=== PATIENT | female | born 1980 | race Two or more races ===

== ENCOUNTER 2017-06-05 22:19 | Emergency (ER) | payer MEDICAID ==
[~2017-06-05] VITALS: Ht 154.9 cm; Wt 63.0 kg
[~2017-06-05 22:19] MED LIST: ACETAMINOPHEN-1 EAC1 ORAL; AMOXICILLIN500 MG ORAL; AMOXICILLIN500 MG PO; AUGMENTIN 875-1 EAC1 ORAL; AURALGAN OTIC1 DROP BOTH EARS; CEPHALEXIN500 MG ORAL; CEPHALEXIN500 MG PO; CIPRODEX OTIC7.5 M1 RIGHT EAR; CORTISPORIN EAR10 M1 RIGHT EAR; CORTISPORIN EAR10 ML OTIC; FIORICET1 EA ORAL; IBUPROFEN600 MG ORAL; IBUPROFEN600 MG PO; MACROBID100 MG ORAL; NKM; NORCO 5-325 TA1 EACH ORAL; PERCOCET 5-3251 EACH PO; VOSOL 2% OTIC S15 ML LEFT EAR
--- NOTE | 2017-06-05 22:58 | Emergency Room Report ---
History of Present Illness General Chief Complaint: Vaginal Source: Patient Present Illness HPI This is a 37-year-old female with irregular menstrual. She presents with vaginal bleeding. Onset for last 3 weeks now. Initially he was just spotting but for the last couple days his been heavier. She has some cramping pain in the suprapubic area. Going through 2 pads a day. No nausea no vomiting. She started on Depo-Provera shot last month. Her doctor check. Her doctor checked for weeks ago and was negative Allergies: Coded Allergies: No Known Allergies (Unverified , 01/14/12) Patient History Past Medical History: see triage record, old chart reviewed Past Surgical History: none Pertinent Family History: none Social History: Denies: smoking Last Menstrual Period: on her period Now: No : 3 Para: 3 Immunizations: other Reviewed Nursing Documentation: PMH: Agreed; PSxH: Agreed Nursing Documentation-PM Past Medical History: No Stated History Review of Systems Eye: Denies: eye pain, blurred vision ENT: Denies: ear pain, nose congestion, throat swelling Respiratory: Denies: cough, shortness of breath Cardiovascular: Denies: chest pain, palpitations Gastrointestinal: Denies: abdominal pain, diarrhea, nausea, vomiting Genitourinary: Reports: vag bleed/dc Musculoskeletal: Denies: back pain, joint pain Skin: Denies: rash Neurological: Denies: headache, numbness Endocrine: Denies: increased thirst, increased urine Hematologic/Lymphatic: Denies: easy bruising All Other Systems: negative except mentioned in HPI Physical Exam Vital Signs Date Time Temp Pulse Resp B/P (MAP) Pulse Ox O2 Delivery O2 Flow Rate FiO2 06/05/17 22:27 98.4 78 18 120/75 98 Room Air 98.4 vitals normal Sp02 EP Interpretation: reviewed, normal General Appearance: well appearing, no apparent distress, alert Head: normocephalic, atraumatic Eyes: bilateral eye PERRL, bilateral eye EOMI ENT: hearing grossly normal, normal pharynx Neck: full range of motion, supple, no meningismus Respiratory: chest non-tender, lungs clear, normal breath sounds Cardiovascular #1: regular rate, rhythm, no murmur Gastrointestinal: normal bowel sounds, non tender, no mass, no organomegaly, no bruit, non-distended Musculoskeletal: back normal, gait/station normal, normal range of motion Psychiatric: mood/affect normal Skin: warm/dry Medical Decision Making Diagnostic Impression: Primary Impression: Dysfunctional uterine bleeding ER Course Patient with disruption a urine bleeding. No evidence of severe blood loss that required blood transfusion. 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 No evidence of ectopic or miscarriage. Last Vital Signs Date Time Temp Pulse Resp B/P (MAP) Pulse Ox O2 Delivery O2 Flow Rate FiO2 06/05/17 22:27 98.4 78 18 120/75 98 Room Air 98.4 Status: unchanged Disposition: HOME, SELF-CARE Condition: Stable Scripts Ibuprofen* (MOTRIN*) 600 Mg Tablet 600 MG ORAL THREE TIMES A DAY, #30 TAB 0 Refills Prov: ALPHONSO ROMO M.D. 06/05/17 Additional Instructions: Follow-up with your doctor in 7 days. Return if worse. ALPHONSO ROMO M.D. Jun 05, 2017 22:58
[2017-06-05 23:08] VITALS: BP 120/75
[2017-06-05 23:28] LABS: BASOPHILS % (AUTO) 0.5 % (0.0-2.0); EOSINOPHILS % (AUTO) 1.2 % (0.0-3.0); HEMATOCRIT 35.1 % (37.0-47.0); HEMOGLOBIN 12.6 G/DL (12.0-16.0); LYMPHOCYTES % (AUTO) 17.1 % (20.0-45.0); MEAN CORPUSCULAR VOLUME 89 FL (80-99); MONOCYTES % (AUTO) 5.4 % (1.0-10.0); NEUTROPHILS % (AUTO) 75.8 % (45.0-75.0); PLATELET COUNT 343 K/UL (150-450); RED BLOOD COUNT 3.96 M/UL (4.20-5.40); RED CELL DISTRIBUTION WIDTH 10.6 % (11.6-14.8); WHITE BLOOD COUNT 9.8 K/UL (4.8-10.8)
[2017-06-05 23:29] LABS: APPEARANCE,URINE CLEAR; BILIRUBIN, URINE NEGATIVE (NEGATIVE); COLOR,URINE PALE YELLOW; GLUCOSE, URINE (UA) NEGATIVE (NEGATIVE); KETONES,URINE NEGATIVE (NEGATIVE); LEUKOCYTE ESTERASE ,URINE 2+ (NEGATIVE); NITRITE,URINE NEGATIVE (NEGATIVE); PH,URINE 7 (4.5-8.0); PROTEIN,URINE NEGATIVE (NEGATIVE); UROBILINOGEN,URINE NORMAL MG/DL (0.0-1.0)
[2017-06-05 23:35] LABS: ANION GAP 9 mmol/L (5-15); BLOOD UREA NITROGEN 15 mg/dL (7-18); CARBON DIOXIDE 25 MMOL/L (21-32); CHLORIDE 104 MMOL/L (98-107); CREATININE 0.8 MG/DL (0.55-1.30); POTASSIUM 3.8 MMOL/L (3.5-5.1); SODIUM 138 MMOL/L (136-145)
[2017-06-05] MEDS ORDERED: IBUPROFEN600 MG ORAL (23:58)
[2017-06-06 00:05] VITALS: BP 120/75
== END 2017-06-06 00:05 | disposition home or self-care (01) ==
LOC: EMR 22:45
DX: N93.8 Other specified abnormal uterine and vaginal bleeding (principal)
CPT/HCPCS: 36415; 80048; 81003; 81025; 85025; 87086; 99283

== ENCOUNTER 2017-10-24 22:29 | Emergency (ER) | payer MEDICAID ==
[~2017-10-24] VITALS: Ht 165.1 cm; Wt 61.2 kg
[2017-10-24 23:00] VITALS: BP 114/67
[2017-10-24 23:30] LABS: BASOPHILS % (AUTO) 0.5 % (0.0-2.0); EOSINOPHILS % (AUTO) 0.5 % (0.0-3.0); HEMATOCRIT 34.5 % (37.0-47.0); HEMOGLOBIN 11.9 G/DL (12.0-16.0); LYMPHOCYTES % (AUTO) 18.5 % (20.0-45.0); MEAN CORPUSCULAR VOLUME 89 FL (80-99); MONOCYTES % (AUTO) 4.2 % (1.0-10.0); NEUTROPHILS % (AUTO) 76.3 % (45.0-75.0); PLATELET COUNT 352 K/UL (150-450); RED BLOOD COUNT 3.87 M/UL (4.20-5.40); RED CELL DISTRIBUTION WIDTH 10.7 % (11.6-14.8); WHITE BLOOD COUNT 4.7 K/UL (4.8-10.8)
--- NOTE | 2017-10-24 23:57 | Emergency Room Report ---
History of Present Illness General Chief Complaint: Gastrointestinal Bleed Source: Patient, Medical Record Present Illness HPI Is a 37-year-old female with no significant past medical history. She presents with rectal bleeding. She has a history hemorrhoid. She noticed some small amount of bleeding starting today and then heavy bleeding tonight. Has some headache. No pain. No abdominal pain. No nausea no vomiting for no fever chills. Has spotting before but never bleeding like this before. No other injury. Allergies: Coded Allergies: No Known Allergies (Unverified , 01/14/12) Patient History Past Medical History: see triage record, old chart reviewed Past Surgical History: none Pertinent Family History: none Social History: Denies: smoking Last Menstrual Period: 09/30/2017 Now: No Immunizations: other Reviewed Nursing Documentation: PMH: Agreed; PSxH: Agreed Nursing Documentation-PMH Past Medical History: No History, Except For Review of Systems Eye: Denies: eye pain, blurred vision ENT: Denies: ear pain, nose congestion, throat swelling Respiratory: Denies: cough, shortness of breath Cardiovascular: Denies: chest pain, palpitations Gastrointestinal: Denies: abdominal pain, diarrhea, nausea, vomiting Musculoskeletal: Denies: back pain, joint pain Skin: Denies: rash Neurological: Denies: headache, numbness Endocrine: Denies: increased thirst, increased urine Hematologic/Lymphatic: Denies: easy bruising All Other Systems: negative except mentioned in HPI Physical Exam Vital Signs Date Time Temp Pulse Resp B/P (MAP) Pulse Ox O2 Delivery O2 Flow Rate FiO2 10/24/17 22:40 99.0 116 19 127/78 97 Room Air 99.0 vitals with tachycardia Sp02 EP Interpretation: reviewed, normal General Appearance: well appearing, no apparent distress, alert Head: normocephalic, atraumatic Eyes: bilateral eye PERRL, bilateral eye EOMI ENT: hearing grossly normal, normal pharynx Neck: full range of motion, supple, no meningismus Respiratory: chest non-tender, lungs clear, normal breath sounds Cardiovascular #1: regular rate, rhythm, no murmur Gastrointestinal: normal bowel sounds, non tender, no mass, no organomegaly, no bruit, non-distended Rectal: normal rectal tone, heme negative stool, other - External hemorrhoid Musculoskeletal: back normal, gait/station normal, normal range of motion Psychiatric: mood/affect normal Skin: warm/dry Medical Decision Making Diagnostic Impression: Primary Impression: Rectal bleeding Additional Impressions: Hemorrhoid Qualified Codes: K64.9 - Unspecified hemorrhoids Anemia Qualified Codes: D64.9 - Anemia, unspecified ER Course Patient with rectal bleeding. Most likely secondary to hemorrhoid. No evidence of any injury. No evidence of abdominal pain or acute abdomen. We'll discharge home. Anemia stable. Lab Results Impression labs with anemia Last Vital Signs Date Time Temp Pulse Resp B/P (MAP) Pulse Ox O2 Delivery O2 Flow Rate FiO2 10/24/17 23:00 98.5 90 19 114/67 97 Room Air 98.5 Status: improved Disposition: HOME, SELF-CARE Condition: Stable Additional Instructions: Follow-up with your Dr. in 7 days. You may need referred to see GI doctor if continue bleeding. Return if symptom worsen. ALPHONSO ROMO M.D. Oct 24, 2017 23:57
[2017-10-25 00:05] VITALS: BP 114/67
== END 2017-10-25 00:05 | disposition home or self-care (01) ==
LOC: EMR 22:58
DX: K62.5 Hemorrhage of anus and rectum (principal); K64.9 Unspecified hemorrhoids; D64.9 Anemia, unspecified
CPT/HCPCS: 36415; 85025; 99283

== ENCOUNTER 2017-11-10 18:10 | Emergency (ER) | payer MEDICAID ==
[~2017-11-10] VITALS: Ht 152.4 cm; Wt 60.8 kg
[2017-11-10 18:15] VITALS: BP 131/86
[2017-11-10] MEDS ORDERED: Ketorolac 30mg Inj IM ONE (18:45)
--- NOTE | 2017-11-10 18:47 | Emergency Room Report ---
History of Present Illness General Chief Complaint: Headache Source: Patient Present Illness HPI 37-year-old female patient presents ER complaining of headache for the past 8 days. Reports some waxed and waned in intensity. Reports been taking ibuprofen for pain-related symptoms, last dose yesterday. Reports mild stomach upset with taking medication would like an alternative medication. Reports history of migraines. Reports headache is on the right side of her face. Denies fever , cough, chest pain, shortness of breath during this time. Denies vomiting. Denies vertigo, syncope, phonophobia or photophobia. Denies loss consciousness. Reports right-sided neck pain during this time. Denies worse headache of life. Denies dysuria, hematuria. Denies ear pain, sore throat, tooth pain. reports nasal congestion during this time. Reports allergy symptoms during this time. Allergies: Coded Allergies: No Known Allergies (Unverified , 01/14/12) Patient History Past Medical History: see triage record Last Menstrual Period: 11/03/17 Now: No Reviewed Nursing Documentation: PMH: Agreed; PSxH: Agreed Nursing Documentation-PMH Past Medical History: No History, Except For Review of Systems All Other Systems: negative except mentioned in HPI Physical Exam Vital Signs Date Time Temp Pulse Resp B/P (MAP) Pulse Ox O2 Delivery O2 Flow Rate FiO2 11/10/17 18:14 98.6 82 18 131/86 96 Room Air 98.6 Sp02 EP Interpretation: reviewed, normal General Appearance: well appearing, no apparent distress, alert, GCS 15, non- toxic Head: normocephalic, atraumatic, other - no TTP over maxillary frontal sinuses bilaterally, no tenderness to palpation over bilateral temporal arteries Eyes: bilateral eye normal inspection, bilateral eye PERRL ENT: hearing grossly normal, normal pharynx, no angioedema, normal voice, TMs + canals normal, uvula midline, moist mucus membranes Neck: full range of motion Respiratory: lungs clear, normal breath sounds, no rhonchi, no respiratory distress, no accessory muscle use, no wheezing, speaking full sentences Cardiovascular #1: regular rate, rhythm, no edema Gastrointestinal: non tender, soft, no mass, non-distended, no guarding, no rebound Genitourinary: no CVA tenderness Musculoskeletal: back normal, digits/nails normal, gait/station normal, normal range of motion, non-tender Neurologic: alert, oriented x3, responsive, camp recreation specialist III-XII nml as tested, motor strength/tone normal, sensory intact, cerebellar normal, normal gait, speech normal, other - negative Kernig, negative Brudzinski Psychiatric: mood/affect normal Skin: no rash Lymphatic: no adenopathy Medical Decision Making PA Attestation Dr. Ramirez is my supervising Physician whom patient management has been discussed with. Diagnostic Impression: Primary Impression: Migraine ER Course Pt presents to ED c/o headache. DDX considered but are not limited to migraine, cluster CRONIN, tension CRONIN, meningitis, ICH, meningitis, HTN, influenza, UTI, otitis media. negative Kernig, negative Brudzinski, patient afebrile, nontoxic appearing, low suspicion for meningitis. No focal neuro deficits, cranial nerves intact as tested, suspicion for ICH, does not require CT that at this time. VITAL SIGNS are WNL, patient is afebrile ER COURSE History and physical exam consistent with migraine headache. Patient provided with metoclopramide, Benadryl, Toradol, and Zofran for headache symptoms. UA does not indicate UTI, does not require antibiotics at this time. urine negative Results discussed with patient. Advised patient do not take Motrin, can be irritating to the GI system, take Tylenol, easier on stomach. Patient reports pain improved. Patient is AOx3, neurologically intact, nontoxic appearing, and ambulatory. patient reports symptoms improved. DISCHARGE: -Rx provided Excedrin Migraine -Rx provided for Claritin for allergy symptoms. At this time pt is stable for d/c to home. Patient is resting comfortably, in no acute distress, nontoxic appearing, talking and smiling, talking on the phone. Will provide with patient care instructions and any necessary prescriptions. Patient to take medication as instructed. Care plan and follow-up instructions provided. Patient questions asked and answered. Patient instructed to follow-up with primary care provider in the next 3 days and discuss further referral with PCP to neurologist. ER precautions given. Patient instructed to return to ER immediately for any new or worsening of symptoms including but not limited to fever, neck stiffness , vision changes, and neurological symptoms. - Please note that this Emergency Department Report was dictated using [employer] manager technology software, occasionally this can lead to erroneous entry secondary to interpretation by the dictation equipment. Last Vital Signs Date Time Temp Pulse Resp B/P (MAP) Pulse Ox O2 Delivery O2 Flow Rate FiO2 11/10/17 18:15 98.6 82 18 131/86 96 Room Air 98.6 Status: improved Disposition: HOME, SELF-CARE Condition: Stable Scripts Loratadine/Pseudoephedrine (CLARITIN-D 24 HOUR TABLET) 1 Each Tab.er.24h 1 TAB PO DAILY, #30 TAB Prov: Tramaine Crenshaw 11/10/17 Aspirin/Acetaminophen/Caffeine (EXCEDRIN MIGRAINE GELTAB) 1 Each Tablet 1 EACH PO BID, #30 TAB Prov: Tramaine Crenshaw 11/10/17 Patient Instructions: Migraine Headache Additional Instructions: Followup with primary care provider in 3 -5 days. Discuss referral to neurology. Take medications as directed. Patient questions asked and answered. ER precautions given, patient instructed to return to ER immediately for any new or worsening of symptoms. Tramaine Crenshaw Nov 10, 2017 18:47
[2017-11-10 18:55] LABS: APPEARANCE,URINE CLEAR; BILIRUBIN, URINE NEGATIVE (NEGATIVE); COLOR,URINE PALE YELLOW; GLUCOSE, URINE (UA) NEGATIVE (NEGATIVE); KETONES,URINE NEGATIVE (NEGATIVE); LEUKOCYTE ESTERASE ,URINE 1+ (NEGATIVE); NITRITE,URINE NEGATIVE (NEGATIVE); PH,URINE 6.5 (4.5-8.0); PROTEIN,URINE NEGATIVE (NEGATIVE); UROBILINOGEN,URINE NORMAL MG/DL (0.0-1.0)
[2017-11-10] MEDS ORDERED: EXCEDRIN MIGRA1 EACH PO (19:01)
[2017-11-10] MEDS ORDERED: CLARITIN-D 241 EACH PO (19:01)
[2017-11-10 19:12] VITALS: BP 131/86
== END 2017-11-10 19:13 | disposition home or self-care (01) ==
LOC: EMR 18:35
DX: G43.909 Migraine, unspecified, not intractable, without status migrainosus (principal)
CPT/HCPCS: 81003; 81025; 87086; 96372; 99283; J1885

== ENCOUNTER 2017-12-05 22:07 | Emergency (ER) | payer MEDICAID ==
[~2017-12-05] VITALS: Ht 152.4 cm; Wt 60.8 kg
[~2017-12-05 22:07] MED LIST changes: +CLARITIN-D 241 EACH PO; +EXCEDRIN MIGRA1 EACH PO
[2017-12-05 22:30] VITALS: BP 122/71
--- NOTE | 2017-12-05 22:42 | Emergency Room Report ---
History of Present Illness General Chief Complaint: Pain Source: Patient Present Illness HPI Patient presents with complaints of pain to her left breast and chest area Radiation to her left arm Patient reports that she usually has breast pain during her menstrual cycle However this episode appear to localize to her left side Denies any shortness of breath denies any pleurisy Denies any vomiting or diarrhea denies any trauma patient does feel that with movement and touching the area she feels the discomfort Allergies: Coded Allergies: No Known Allergies (Unverified , 12/05/17) Patient History Past Medical History: see triage record Pertinent Family History: none Last Menstrual Period: Nov 2017 Reviewed Nursing Documentation: PMH: Agreed; PSxH: Agreed Nursing Documentation-PMH Past Medical History: No Stated History Review of Systems All Other Systems: negative except mentioned in HPI Physical Exam Vital Signs Date Time Temp Pulse Resp B/P (MAP) Pulse Ox O2 Delivery O2 Flow Rate FiO2 12/05/17 22:10 98.1 78 15 119/80 97 Room Air Sp02 EP Interpretation: reviewed, normal General Appearance: well appearing, no apparent distress Head: normocephalic, atraumatic Eyes: bilateral eye PERRL, bilateral eye EOMI ENT: hearing grossly normal, normal pharynx, TMs + canals normal, uvula midline Neck: full range of motion, supple, no meningismus, no bony tend Respiratory: lungs clear, normal breath sounds, no rhonchi, no respiratory distress, no retraction, no accessory muscle use Cardiovascular #1: normal peripheral pulses, regular rate, rhythm, no edema, no gallop, no JVD, no murmur, other - Patient denies any breast masses or lumps , and this exam was deferred Gastrointestinal: normal bowel sounds, non tender, soft, no mass, no organomegaly, non-distended, no guarding, no hernia, no pulsatile mass, no rebound Genitourinary: no CVA tenderness Musculoskeletal: normal inspection Neurologic: oriented x3, responsive, insurance claims examiner III-XII nml as tested, motor strength/ tone normal, sensory intact Psychiatric: mood/affect normal Skin: normal color, no rash, warm/dry, palpation normal Lymphatic: normal inspection, no adenopathy Medical Decision Making Diagnostic Impression: Primary Impression: Chest pain ER Course Patient is a fairly complex patient with multiple differential to consideration including but not limited to cardiac cardiopulmonary and vascular emergencies Patient's EKG and x-ray are normal Patient remains hemodynamically stable It was discussed regarding further evaluation of the patient's breast as outpatient basis At this time patient is stable for close follow-up EKG Diagnostic Results Rate: normal Rhythm: NSR ST Segments: no acute changes Rhythm Strip Diag. Results EP Interpretation: yes Rate: 66 Rhythm: NSR, no PVC's, no ectopy Chest X-Ray Diagnostic Results Chest X-Ray Diagnostic Results : Chest X-Ray Ordered: Yes # of Views/Limited/Complete: 1 View Indication: Chest Pain EP Interpretation: Yes Interpretation: no consolidation, no effusion, no pneumothorax Impression: No acute disease Electronically Signed by: Hayes Glover DO Last Vital Signs Date Time Temp Pulse Resp B/P (MAP) Pulse Ox O2 Delivery O2 Flow Rate FiO2 12/05/17 22:30 98.1 75 15 122/71 100 Room Air Status: improved Disposition: HOME, SELF-CARE Condition: Improved Scripts Ibuprofen* (MOTRIN*) 600 Mg Tablet 600 MG ORAL Q8H PRN for For Pain, #20 TAB 0 Refills Prov: Hayes Glover DO 12/05/17 Additional Instructions: Patient is provided with the discharge instructions notified to follow up with primary doctor in the next 2-3 days otherwise return to the er with any worsening symptoms. Please note that this report is being documented using [employer] technology. This can lead to erroneous entry secondary to incorrect interpretation by the dictating instrument. Hayes Glover DO Dec 05, 2017 22:42
[2017-12-05 22:55] VITALS: BP 122/71
[2017-12-05] MEDS ORDERED: IBUPROFEN600 MG ORAL (22:57)
--- NOTE | 2017-12-06 10:29 | Diagnostic Imaging Report ---
Indication: Chest pain Technique: One view of the chest Comparison: none Findings: Lungs and pleural spaces are clear. Heart size is normal Impression: No acute process
== END 2017-12-05 23:15 | disposition home or self-care (01) ==
LOC: EMR 22:46
DX: R07.9 Chest pain, unspecified (principal); N64.4 Mastodynia
CPT/HCPCS: 71045; 93005; 99283

== ENCOUNTER 2018-06-04 21:09 | Emergency (ER) | payer MEDICAID ==
[~2018-06-04] VITALS: Ht 160 cm; Wt 56.7 kg
[2018-06-04] MEDS ORDERED: NKM (21:23)
--- NOTE | 2018-06-04 21:25 | NUR ---
ED Nurse Note: Patient presents with complaints of rectal bleeding x 1 week. patient suspect hemorrhoids.
[2018-06-04 21:28] VITALS: BP 128/80
--- NOTE | 2018-06-04 21:32 | NUR ---
ED Nurse Note: RUTH ANN ye at bedside.
--- NOTE | 2018-06-04 21:40 | Emergency Room Report ---
History of Present Illness General Chief Complaint: General Complaint Source: Patient Present Illness HPI Patient is a 38-year-old female who presented after increased rectal discomfort. Patient reports having increased rectal bleeding with bowel movements. She denies any bleeding when she is not having any stools. She states that she has been having increased straining. She denies any weight loss. She states that she did not have any significant abdominal pain. She reports having had regular menstruation. She states her last period was 12 days ago. She denies any vomiting or diarrhea. She reports having increased straining at stool. Allergies: Coded Allergies: No Known Allergies (Unverified , 12/05/17) Patient History Past Medical History: see triage record Last Menstrual Period: 05/23/2018 Now: No Reviewed Nursing Documentation: PMH: Agreed; PSxH: Agreed Nursing Documentation-PMH Past Medical History: No Stated History Review of Systems All Other Systems: negative except mentioned in HPI Physical Exam Vital Signs Date Time Temp Pulse Resp B/P (MAP) Pulse Ox O2 Delivery O2 Flow Rate FiO2 06/04/18 21:19 98.2 77 16 128/80 99 Room Air General Appearance: well appearing, no apparent distress, alert, GCS 15, non- toxic Head: normocephalic, atraumatic ENT: hearing grossly normal, normal voice Neck: full range of motion, supple Respiratory: lungs clear, no respiratory distress, speaking full sentences Cardiovascular #1: normal inspection, normal peripheral pulses, no edema Gastrointestinal: normal inspection Musculoskeletal: normal inspection, back normal Neurologic: normal inspection, alert, oriented x3, responsive, normal gait Psychiatric: mood/affect normal Skin: normal inspection, no rash Medical Decision Making Diagnostic Impression: Primary Impression: Hemorrhoids ER Course Patient presented for rectal bleeding. Differential diagnosis includes is not limited to hemorrhoidal bleeding, fissure, diverticulosis, among others. Patient has a benign exam and does not appear to require any further imaging or laboratory testing at this time. She was noted to have benign exam. She did not appear to be in any acute distress and does not appear to be currently symptomatic. Patient was given prescription for stool softeners as well as hemorrhoid cream. Patient was advised to follow-up with her primary care physician for recheck. Last Vital Signs Date Time Temp Pulse Resp B/P (MAP) Pulse Ox O2 Delivery O2 Flow Rate FiO2 06/04/18 21:28 77 16 Room Air 06/04/18 21:28 98.2 128/80 99 Status: improved Disposition: HOME, SELF-CARE Condition: Stable Scripts Docusate Sodium* (COLACE*) 100 Mg Capsule 100 MG ORAL TWICE A DAY, #20 CAP Prov: Maxx Pearson MD 06/04/18 Hydrocortisone Ac/Lidocaine (LIDOCAINE-HC 3-0.5% CREAM) 28.35 Gm Cream..g. 28.35 GM TP DAILY, #28.3 GM Prov: Maxx Pearson MD 06/04/18 Maxx Pearson MD Jun 04, 2018 21:40
[2018-06-04] MEDS ORDERED: COLACE100 MG ORAL (21:42)
[2018-06-04] MEDS ORDERED: LIDOCAINE-HC28.35 GM TP (21:42)
[2018-06-04 21:47] VITALS: BP 128/80
--- NOTE | 2018-06-04 21:47 | NUR ---
ED Nurse Note: Patient discharged in stable condition, verbalized understanding of discharge instructions. Patient escorted to discharge desk. Patient departed with all belongings.
== END 2018-06-04 21:50 | disposition home or self-care (01) ==
LOC: EMR 21:35
DX: K64.9 Unspecified hemorrhoids (principal)
CPT/HCPCS: 81025; 99282

== ENCOUNTER 2019-01-05 21:37 | Emergency (ER) | payer MEDICAID ==
[~2019-01-05] VITALS: Ht 152.4 cm; Wt 57.6 kg
[~2019-01-05 21:37] MED LIST changes: +COLACE100 MG ORAL; +LIDOCAINE-HC28.35 GM TP
[2019-01-05 21:49] VITALS: BP 126/81
--- NOTE | 2019-01-05 21:49 | NUR ---
ED Nurse Note: Patient walked in to ER c/o painful urination with burning sensation and foul odor x 2weeks but gotten worse for the last 2 days. Denies hematuria. Afebrile. VSS.
--- NOTE | 2019-01-05 21:50 | NUR ---
ED Nurse Note: Urine collected and sent to lab.
--- NOTE | 2019-01-05 21:59 | Emergency Room Report ---
History of Present Illness General Chief Complaint: Female Urogenital Problems Source: Patient Present Illness [facility] Disclaimer: Please note that this report is being documented using [employer] technology. This can lead to erroneous entry secondary to incorrect interpretation by the dictating instrument. HPI: 38-year-old female presents for evaluation of painful urination. Symptoms present proximal he 1 week and getting worse. Notes lower pelvic cramping and burning sensation with urination as well as frequency and urgency. Denies vaginal discharge or vaginal bleeding. Denies flank pain or fever. Otherwise in her usual state of health. No other complaints at this time. LMP was 1 month ago. PMH: Denies PSH: section x3 Allergies: Denies Social Hx: Regular tobacco use, denies alcohol or drug use Allergies: Coded Allergies: No Known Allergies (Unverified , 12/05/17) Patient History Now: No Nursing Documentation-PMH Past Medical History: No Stated History Review of Systems All Other Systems: negative except mentioned in HPI Physical Exam Vital Signs Date Time Temp Pulse Resp B/P (MAP) Pulse Ox O2 Delivery O2 Flow Rate FiO2 01/05/19 21:44 98.4 75 18 126/81 (96) 99 Room Air General: Awake and alert, no acute distress HEENT: NC/AT. EOMI. Resp: Normal work of breathing Abdomen: Abdomen is soft, nondistended. Mild tenderness in the suprapubic region. No rebound. No masses. Skin: Surgical scars are clear and dry and intact. No abrasions, laceration or rash over the exposed skin MSK: Normal tone and bulk. Moving all extremities. No obvious deformity. Neuro: Awake and alert. Mentating appropriately. Back/Spine: No CVA tenderness. Medical Decision Making Diagnostic Impression: Primary Impression: Urinary tract infection ER Course 38-year-old female presents for evaluation of 1 week of dysuria and lower abdominal cramping. Differential includes was not limited to UTI, pyelonephritis, STI, ovarian cyst, PID, ectopic . Will obtain urinalysis and UTI. She is well-appearing otherwise. Laboratory Tests Test 01/05/19 21:50 Urine Color Pale yellow Urine Appearance Slightly cloudy Urine pH 6.5 (4.5-8.0) Urine Specific [place] 1.030 (1.005-1.035) Urine Protein 1+ (NEGATIVE) H Urine Glucose (UA) Negative (NEGATIVE) Urine Ketones Negative (NEGATIVE) Urine Blood 3+ (NEGATIVE) H Urine Nitrite Negative (NEGATIVE) Urine Bilirubin Negative (NEGATIVE) Urine Urobilinogen Normal MG/DL (0.0-1.0) Urine Leukocyte Esterase 3+ (NEGATIVE) H Urine RBC 10-15 /HPF (0 - 2) H Urine WBC Tntc /HPF (0 - 2) H Urine Squamous Epithelial Cells Moderate /LPF (NONE/OCC) H Urine Bacteria Moderate /HPF (NONE) H Urine HCG, Qualitative Negative (NEGATIVE) Reevaluation Time: 22:23 Last Vital Signs Date Time Temp Pulse Resp B/P (MAP) Pulse Ox O2 Delivery O2 Flow Rate FiO2 01/05/19 21:49 98.4 75 18 126/81 99 Room Air Reevaluation Impression Urinalysis consistent with an acute urinary tract infection. hCG is negative. No clinical signs of pyelonephritis. The patient will be started on Keflex for 1 week and follow-up with her PMD. Discussed reasons to return to the emergency department. She understands and agrees with this treatment plan. Disposition: HOME, SELF-CARE Condition: Stable Scripts Cephalexin* (KEFLEX*) 500 Mg Capsule 500 MG ORAL EVERY 12 HOURS for 7 Days, #14 CAP 0 Refills Prov: Mirza Rodriguez MD 01/05/19 Mirza Rodriguez MD Jan 05, 2019 21:59
[2019-01-05 22:11] LABS: APPEARANCE,URINE SLIGHTLY CLOUDY; BILIRUBIN, URINE NEGATIVE (NEGATIVE); COLOR,URINE PALE YELLOW; GLUCOSE, URINE (UA) NEGATIVE (NEGATIVE); KETONES,URINE NEGATIVE (NEGATIVE); LEUKOCYTE ESTERASE ,URINE 3+ (NEGATIVE); NITRITE,URINE NEGATIVE (NEGATIVE); PH,URINE 6.5 (4.5-8.0); PROTEIN,URINE 1+ (NEGATIVE); UROBILINOGEN,URINE NORMAL MG/DL (0.0-1.0)
[2019-01-05] MEDS ORDERED: CEPHALEXIN500 MG ORAL (22:22)
[2019-01-05 22:26] VITALS: BP 126/81
--- NOTE | 2019-01-05 22:26 | NUR ---
ED Nurse Note: Pt cleared by ERMD for discharge. DC instructions/prescription was given and explained to pt and verbalized understanding of teachings. All medical deviecs such as ID band removed. Pt is AAO x4, ambulatory and left with all personal belongings.
== END 2019-01-05 22:55 | disposition home or self-care (01) ==
LOC: EMR 22:05
DX: N39.0 Urinary tract infection, site not specified (principal)
CPT/HCPCS: 81003; 81025; 87086; Z7502; 99283

== ENCOUNTER 2019-01-17 22:33 | Emergency (ER) | payer MEDICAID ==
[~2019-01-17] VITALS: Ht 152.4 cm; Wt 68.0 kg
[~2019-01-17 22:33] MED LIST changes: +NITROFURANTOIN100 M2 ORAL
[2019-01-17 22:40] VITALS: BP 127/80
--- NOTE | 2019-01-17 22:58 | Emergency Room Report ---
History of Present Illness General Chief Complaint: Female Urogenital Problems Source: Patient Present Illness HPI Is a 38-year-old female with a history of UTI. She presents with complaint of UTI symptoms. She has dysuria. Onset for last couple days. She was treated for with antibiotics for the last week for UTI. She had better but came back yesterday. No nausea no vomiting. No urgency or frequency. Has suprapubic pain. No hematuria. No back pain. No nausea no vomiting. Did not know what antibiotic she was taking. Allergies: Coded Allergies: No Known Allergies (Unverified , 12/05/17) Patient History Past Medical History: see triage record, old chart reviewed Past Surgical History: other Pertinent Family History: none Social History: Denies: smoking Last Menstrual Period: 01/17/19 Now: No Immunizations: other Reviewed Nursing Documentation: PMH: Agreed; PSxH: Agreed Nursing Documentation-PMH Past Medical History: No History, Except For Review of Systems Eye: Denies: eye pain, blurred vision ENT: Denies: ear pain, nose congestion, throat swelling Respiratory: Denies: cough, shortness of breath Cardiovascular: Denies: chest pain, palpitations Gastrointestinal: Denies: abdominal pain, diarrhea, nausea, vomiting Genitourinary: Reports: dysuria, frequency Musculoskeletal: Denies: back pain, joint pain Skin: Denies: rash Neurological: Denies: headache, numbness Endocrine: Denies: increased thirst, increased urine Hematologic/Lymphatic: Denies: easy bruising All Other Systems: negative except mentioned in HPI Physical Exam Vital Signs Date Time Temp Pulse Resp B/P (MAP) Pulse Ox O2 Delivery O2 Flow Rate FiO2 01/17/19 22:43 98.2 73 14 123/83 (96) 98 Room Air Vitals normal Sp02 EP Interpretation: reviewed, normal General Appearance: well appearing, no apparent distress, alert Head: normocephalic, atraumatic Eyes: bilateral eye PERRL, bilateral eye EOMI ENT: hearing grossly normal, normal pharynx Neck: full range of motion, supple, no meningismus Respiratory: chest non-tender, lungs clear, normal breath sounds Cardiovascular #1: regular rate, rhythm, no murmur Gastrointestinal: normal bowel sounds, non tender, no mass, no organomegaly, no bruit, non-distended Musculoskeletal: back normal, normal range of motion, gait/station normal Psychiatric: mood/affect normal Medical Decision Making Diagnostic Impression: Primary Impression: Vaginitis Qualified Codes: N76.0 - Acute vaginitis ER Course Presents with dysuria. She has been on 3 courses of antibiotics in the last month already. This may be a yeast infection. She denies any discharge. She said it hurts around the urethra when she urinates. As of ectopic. No UTI. Will wait for culture before treatment. I will go ahead and put her on Diflucan. Last Vital Signs Date Time Temp Pulse Resp B/P (MAP) Pulse Ox O2 Delivery O2 Flow Rate FiO2 01/17/19 22:43 98.2 73 14 123/83 (96) 98 Room Air Status: improved Disposition: HOME, SELF-CARE Condition: Stable Scripts Fluconazole* (DIFLUCAN*) 100 Mg Tablet 100 MG ORAL DAILY, #7 TAB Prov: Almas Delcid MD 01/18/19 Referrals: NOT CHOSEN IPA/,REFERRING (PCP) Patient Instructions: Vaginal Yeast Infection, Adult Additional Instructions: Follow-up with your doctor in 7 days. Return if worse. Almas Delcid MD Jan 17, 2019 22:58
[2019-01-17 23:42] LABS: APPEARANCE,URINE CLEAR; BILIRUBIN, URINE NEGATIVE (NEGATIVE); COLOR,URINE PALE YELLOW; GLUCOSE, URINE (UA) NEGATIVE (NEGATIVE); KETONES,URINE NEGATIVE (NEGATIVE); LEUKOCYTE ESTERASE ,URINE NEGATIVE (NEGATIVE); NITRITE,URINE NEGATIVE (NEGATIVE); PH,URINE 7 (4.5-8.0); PROTEIN,URINE NEGATIVE (NEGATIVE); UROBILINOGEN,URINE NORMAL MG/DL (0.0-1.0)
[2019-01-18] MEDS ORDERED: DIFLUCAN100 MG ORAL (00:23)
[2019-01-18 00:28] VITALS: BP 132/86
== END 2019-01-18 00:28 | disposition home or self-care (01) ==
LOC: EMR 22:56
DX: N76.0 Acute vaginitis (principal)
CPT/HCPCS: 81003; 81025; Z7502; 99283

== ENCOUNTER 2019-04-01 21:20 | Emergency (ER) | payer MEDICAID ==
[~2019-04-01] VITALS: Ht 167.6 cm; Wt 56.7 kg
[~2019-04-01 21:20] MED LIST changes: +DIFLUCAN100 MG ORAL
[2019-04-01 21:30] VITALS: BP 117/79
--- NOTE | 2019-04-01 21:30 | NUR ---
ED Nurse Note: Pt walked into ED from home for c/o vaginal itching and burning x2 days. Pt is aaox4, no acute distress noted.
--- NOTE | 2019-04-01 21:37 | Emergency Room Report ---
History of Present Illness General Chief Complaint: Vaginal Source: Patient Present Illness HPI Is a 39-year-old female with no past medical history which presents with complaint of vaginal itching. Onset for last 2 days. Has a whitish discharge. No fever chills but no nausea no vomiting. Some pain with urination. She does not have urine frequency or urgency. No vaginal bleeding. Sexually active but one partner. Allergies: Coded Allergies: No Known Allergies (Unverified , 12/05/17) Patient History Past Medical History: see triage record, old chart reviewed Past Surgical History: none Pertinent Family History: none Social History: Denies: smoking Last Menstrual Period: 03/07/19 Now: No : 3 Para: 3 Immunizations: other Reviewed Nursing Documentation: PMH: Agreed; PSxH: Agreed Nursing Documentation-PM Past Medical History: No Stated History Review of Systems Eye: Denies: eye pain, blurred vision ENT: Denies: ear pain, nose congestion, throat swelling Respiratory: Denies: cough, shortness of breath Cardiovascular: Denies: chest pain, palpitations Gastrointestinal: Denies: abdominal pain, diarrhea, nausea, vomiting Genitourinary: Reports: discharge, pain Musculoskeletal: Denies: back pain, joint pain Skin: Denies: rash Neurological: Denies: headache, numbness Endocrine: Denies: increased thirst, increased urine Hematologic/Lymphatic: Denies: easy bruising All Other Systems: negative except mentioned in HPI Physical Exam Vital Signs Date Time Temp Pulse Resp B/P (MAP) Pulse Ox O2 Delivery O2 Flow Rate FiO2 04/01/19 21:24 98.2 77 16 117/79 (92) 100 Room Air Vitals normal Sp02 EP Interpretation: reviewed, normal General Appearance: well appearing, no apparent distress, alert Head: normocephalic, atraumatic Eyes: bilateral eye PERRL, bilateral eye EOMI ENT: hearing grossly normal, normal pharynx Neck: full range of motion, supple, no meningismus Respiratory: chest non-tender, lungs clear, normal breath sounds Cardiovascular #1: regular rate, rhythm, no murmur Gastrointestinal: normal bowel sounds, non tender, no mass, no organomegaly, no bruit, non-distended Genitourinary: other - Vaginal exam done with female nurse as marketing rep. External exam show small whitish discharge on the labia majora and minora. Internal exam showed thick whitish discharge adherent to the vaginal wall and cervix. Musculoskeletal: back normal, normal range of motion, gait/station normal Psychiatric: mood/affect normal Medical Decision Making Diagnostic Impression: Primary Impression: Vaginitis and vulvovaginitis ER Course She presents with a vaginitis. Even though the wet mount did not show any yeast , I suspect that this is from [place]. We will go ahead and treat it. No evidence of any bacterial vaginosis. No evidence of any other STD. Will discharge home. Last Vital Signs Date Time Temp Pulse Resp B/P (MAP) Pulse Ox O2 Delivery O2 Flow Rate FiO2 04/01/19 21:24 98.2 77 16 117/79 (92) 100 Room Air Status: improved Disposition: HOME, SELF-CARE Condition: Stable Scripts Fluconazole (FLUCONAZOLE) 100 Mg Tablet 100 MG ORAL DAILY, #7 TAB 0 Refills Prov: Almas Delcid MD 04/01/19 Additional Instructions: Follow-up with your doctor in 7 days. Return if symptoms worsen. Almas Delcid MD Apr 01, 2019 21:37
--- NOTE | 2019-04-01 21:45 | NUR ---
ED Nurse Note: ERMD bedside for pelvic exam. Female RN assisted ERMD with procedure as prevention rn.
[2019-04-01 22:48] LABS: APPEARANCE,URINE CLOUDY; BILIRUBIN, URINE NEGATIVE (NEGATIVE); COLOR,URINE PALE YELLOW; GLUCOSE, URINE (UA) NEGATIVE (NEGATIVE); KETONES,URINE NEGATIVE (NEGATIVE); LEUKOCYTE ESTERASE ,URINE 1+ (NEGATIVE); NITRITE,URINE NEGATIVE (NEGATIVE); PH,URINE 8 (4.5-8.0); PROTEIN,URINE NEGATIVE (NEGATIVE); UROBILINOGEN,URINE NORMAL MG/DL (0.0-1.0)
[2019-04-01] MEDS ORDERED: FLUCONAZOLE100 MG ORAL (22:53)
[2019-04-01 23:10] VITALS: BP 115/74
--- NOTE | 2019-04-01 23:10 | NUR ---
ER DISCHARGE NOTE: Patient is cleared to be discharged per ERMD, pt is aox4, on room air, with stable vital signs. pt was given dc and prescription instructions, pt was able to verbalize understanding, pt id band removed. pt is able to ambulate with steady gait. pt took all belongings.
== END 2019-04-01 23:10 | disposition home or self-care (01) ==
LOC: EMR 21:43
DX: N76.0 Acute vaginitis (principal)
CPT/HCPCS: 81003; 81025; 87210; Z7502; 99283

== ENCOUNTER 2019-11-26 20:14 | Emergency (ER) | payer MEDICAID ==
[~2019-11-26] VITALS: Ht 154.9 cm; Wt 61.2 kg
[~2019-11-26 20:14] MED LIST changes: +FLUCONAZOLE100 MG ORAL
[2019-11-26 20:20] VITALS: BP 130/83
--- NOTE | 2019-11-26 20:20 | NUR ---
ED Nurse Note: walked in to ed c/o upper abd pain and rectal pain onset 2 wks ago. denies diarrhea or vomitting but reports nausea. vss, nad, aaox4 ,ambulatory, ermd at bedside, on hall monitor, blood and urine collected and sent to lab. iv established on left ac 20g patent and intact
[2019-11-26 20:58] LABS: APPEARANCE,URINE CLEAR; BILIRUBIN, URINE NEGATIVE (NEGATIVE); COLOR,URINE PALE YELLOW; GLUCOSE, URINE (UA) NEGATIVE (NEGATIVE); KETONES,URINE NEGATIVE (NEGATIVE); LEUKOCYTE ESTERASE ,URINE NEGATIVE (NEGATIVE); NITRITE,URINE NEGATIVE (NEGATIVE); PH,URINE 8 (4.5-8.0); PROTEIN,URINE NEGATIVE (NEGATIVE); UROBILINOGEN,URINE NORMAL MG/DL (0.0-1.0)
--- NOTE | 2019-11-26 21:00 | Emergency Room Report ---
History of Present Illness General Chief Complaint: Abdominal Pain Source: Patient Present Illness HPI 39-year-old female with history of gastritis and rectal hemorrhoids presents with chief complaint of right upper quadrant abdominal burning for 20 days. Denies pain. Endorses constipation but denies bloody stools, diarrhea, vomiting, dysuria, hematuria, fever, chills, decreased appetite or other symptoms. Patient is concerned that she might have colon cancer. Does not have history of familial colon cancer. No history of EGD or colonoscopy. The patient's symptoms were gradual onset, severity was moderate, duration since 20 days. Quality: "Burning" and worse when she eats certain foods Past medical history: Gastritis Past surgical history: Denies Smoking: Occasional Alcohol use: Occasional Drug use: Denies Review of systems: CONST: No fevers or chills, No night sweats PULMONARY: No productive cough, No shortness of breath CARDIAC: No chest pain, No palpitations GI: No vomiting, No diarrhea , No melena_or_BRBPR : No dysuria, No hematuria, No discharge NEURO: No new_focal_weakness_or_numbness, No confusion, No vision changes 14 point Review of Systems is otherwise negative except per HPI Physical Exam: GENERAL: Awake_alert_ nontoxic, no acute distress Spo2 100% on RA -normal EYES: Extraocular muscles are intact. Conjunctivae clear. Lids without swelling ENT: External nose and ear normal_in_appearance. Oropharynx clear. Head_atraumatic, Moist_oral_mucosa NECK: No JVD. No meningismus. No thyromegaly. Supple. Trachea midline RESP: Normal respiratory effort. Symmetric rise. No stridor. Clear_to_auscultation_No_rales_No_wheezes CARDIAC: Regular rate and regular rhytm. No_significant pedal edema. ABDOMEN: Soft. Nondistended. Nontender_No_rebound_or_guarding. Negative Carvajal sign. Negative Rovsing sign. Negative obturator sign. Negative psoas sign. No CVA tenderness to palpation. Rectal: Nonthrombosed external hemorrhoid. No bleeding Normal tone and sensation, light brown stool, no melena or blood. Chaperoned with nurse at bedside MSK: Normal muscle tone, without rigidity. Extremities without asymmetric deformity or swelling. SKIN: Warm and dry. No visible cyanosis or pallor NEUROLOGIC: Alert, oriented x3. Motor_and_sensation_grossly_intact. No truncal ataxia. Gait_normal Psych: Normal mood and affect, normal judgment and insight - COORDINATION OF CARE Case was discussed with: Patient Any labs that were ordered were interpreted as part of the medical decision making: Medical Decision Making/Plan: DDx: Abdominal pain secondary to UTI versus nephrolithiasis vs constipation versus hemorrhoid Abdominal examination is benign. No CVA or flank tenderness palpation. Patient is afebrile. Rectal examination was performed with collating machine operator in the room, ZACKERY Hernandez. Patient is noted to have 2 nonthrombosed external hemorrhoids. I suspect that her abdominal pain is secondary to gastritis. Doubt pyelonephritis, abscess, or upper infection Urinalysis shows is negative. Patient is afebrile, without any significant tenderness in the RUQ, and a negative [place] sign. The patients presentation does not appear to be consistent with acute cholecystitis and thus definitive imaging to rule it out was not pursued. The patients current symptoms and exam do not appear to be from an emergent process or condition requiring immediate surgery. Although I considered abdominal imaging, given the patients benign exam, the patients presentation does not warrant urgent / immediate imaging. At this time, the risk of CT scan and associated radiation likely outweigh the benefits, and thus CT imaging was deferred. The patients symptoms significantly improved, exam upon discharge revealed a benign abdomen without any surgical or peritoneal signs , and tolerating oral fluids. The patient appears stable for discharge with abdominal_recheck_in_24_hours, and understand to return to the ED immediately if symptoms change or worsen. Will DC with zofran, PPI for gastritis. Doubt abdominal pain as anginal equivalant as it is non exertional and inconsistent with ACS Will give colace and anusol for hemorrhoid. Strict return ER precautions discussed Allergies: Coded Allergies: No Known Allergies (Unverified , 12/05/17) COVID-19 Screening Contact w/high risk pt: No Experienced COVID-19 symptoms?: No COVID-19 Testing performed NEWSPAPER PRESS OPERATOR APPRENTICE: No Patient History Now: No Nursing Documentation-PM Past Medical History: No Stated History Physical Exam Vital Signs Date Time Temp Pulse Resp B/P (MAP) Pulse Ox O2 Delivery O2 Flow Rate FiO2 11/26/19 20:16 98.8 66 18 131/85 (100) 98 Room Air Sp02 EP Interpretation: reviewed, normal Medical Decision Making Diagnostic Impression: Primary Impression: Abdominal pain Additional Impressions: Gastritis External hemorrhoid Reevaluation Time: 21:05 Last Vital Signs Date Time Temp Pulse Resp B/P (MAP) Pulse Ox O2 Delivery O2 Flow Rate FiO2 11/26/19 20:16 98.8 66 18 131/85 (100) 98 Room Air Status: improved Disposition: HOME, SELF-CARE Admit Decision Time: 21:05 Condition: Stable Scripts Docusate Sodium* (COLACE*) 100 Mg Capsule 100 MG ORAL DAILY for 30 Days, #30 CAP Prov: Leann Nieves D.O. 11/26/19 Hydrocortisone Hc 2.5% Cream (ANUSOL-HC 2.5% CREAM) Y Cr 30 GM RC DAILY for 14 Days, #30 GM Prov: Leann Nieves D.O. 11/26/19 Omeprazole (OMEPRAZOLE) 20 Mg Capsule.dr 20 MG ORAL DAILY for Gerd for 30 Days, #30 CAP Prov: Leann Nieves D.O. 11/26/19 Ondansetron (Zofran) 4 Mg Tablet 4 MG ORAL Q6H PRN for Nausea & Vomiting for 5 Days, #10 TAB Prov: Leann Nieves D.O. 11/26/19 Referrals: NOT CHOSEN IPA/MD,REFERRING (PCP) Patient Instructions: Abdominal Pain, Adult, Gastritis, Adult, [id number], Hemorrhoids, [id number] Additional Instructions: Instructions for patient/production controller: Follow up with your physician in 1-2 days. Follow-up with your doctor sooner if your condition requires a more timely clinical reevaluation. Return to the emergency department immediately if you feel that your condition is worsening or if you have any new or concerning symptoms. Review your discharge instructions and take any prescriptions given as instructed. [facility] PROVIDES FREE OR LOW-COST HEALTH SERVICES TO PEOPLE WHO CAN SHOW PROOF THAT THEY LIVE IN [facility]. TO FIND MORE CLINICS PARTNERED WITH [facility] TO PROVIDE SERVICE, PLEASE CALL . Leann Nieves D.O. Nov 26, 2019 21:00
[2019-11-26] MEDS ORDERED: COLACE100 MG ORAL (21:07)
[2019-11-26] MEDS ORDERED: ANUSOL-HC30 GM RC (21:07)
[2019-11-26] MEDS ORDERED: OMEPRAZOLE20 M2 ORAL (21:07)
[2019-11-26] MEDS ORDERED: ZOFRAN4 M1 ORAL (21:07)
== END 2019-11-26 21:55 | disposition home or self-care (01) ==
LOC: EMR 20:25
DX: K29.70 Gastritis, unspecified, without bleeding (principal); R10.11 Right upper quadrant pain; K64.4 Residual hemorrhoidal skin tags
CPT/HCPCS: 81003; 81025; Z7502; 99282

== ENCOUNTER 2019-12-05 14:14 | Emergency (ER) | payer MEDICAID ==
[~2019-12-05] VITALS: Ht 152.4 cm; Wt 61.2 kg
[~2019-12-05 14:14] MED LIST changes: +ANUSOL-HC30 GM RC; +OMEPRAZOLE20 M2 ORAL; +ZOFRAN4 M1 ORAL
--- NOTE | 2019-12-05 14:30 | NUR ---
ED Nurse Note: pt presents to ED c/o epigastric abd pain x 3 weeks. she denies N/V/D or urinary symptoms at this time. pt was seen and treated here on 11/25 for similar symptoms but states that the meds ahve not been helping and that she has not noticed any improvement of symptoms
[2019-12-05 14:31] VITALS: BP 116/76
--- NOTE | 2019-12-05 14:43 | Emergency Room Report ---
History of Present Illness General Chief Complaint: Abdominal Pain Source: Patient Present Illness HPI 39-year-old female with history of gastritis here complaining of worsening epigastric abdominal pain. Patient was seen at [facility] few days ago with similar complaint. Patient reports that primary doctor cannot obtain referral to counter maker at this time. Reports that she stopped eating spicy aci dic food however continues to smoke tobacco. Patient is an occasional alcohol drinker. Explains the pain is worse when waking up in the morning. Reports that his epigastric and feels gassy. Denies any blood in stool and reports her constipation has been resolved. Denies any nausea vomiting have been resolved. Denies any bloody emesis. Denies any fever and chills, cough or congestion, shortness of breath, headache and dizziness. Reports that the medication that was prescribed for her last time did not help her. Denies drug use. Denies . Allergies: Coded Allergies: No Known Allergies (Unverified , 12/05/17) COVID-19 Screening Contact w/high risk pt: No Experienced COVID-19 symptoms?: No COVID-19 Testing performed AGRICULTURAL ECONOMIST: No Patient History Past Medical History: see triage record Past Surgical History: none Pertinent Family History: none Social History: Reports: smoking Last Menstrual Period: 11/12/19 Now: No Immunizations: UTD Reviewed Nursing Documentation: PMH: Agreed; PSxH: Agreed Review of Systems All Other Systems: negative except mentioned in HPI Physical Exam Vital Signs Date Time Temp Pulse Resp B/P (MAP) Pulse Ox O2 Delivery O2 Flow Rate FiO2 12/05/19 14:20 98.8 80 19 116/76 (89) 98 Room Air Sp02 EP Interpretation: reviewed, normal General Appearance: no apparent distress, alert, GCS 15, non-toxic Head: normocephalic, atraumatic Eyes: bilateral eye normal inspection, bilateral eye PERRL ENT: hearing grossly normal, normal pharynx, no angioedema, normal voice Neck: full range of motion, supple/symm/no masses Respiratory: chest non-tender, lungs clear, normal breath sounds, speaking full sentences Cardiovascular #1: regular rate, rhythm, no edema, no murmur Gastrointestinal: normal bowel sounds, non tender, soft, no mass, no organomegaly, no bruit, non-distended, no guarding, no hernia, no pulsatile mass, no rebound Rectal: deferred Genitourinary: no CVA tenderness Musculoskeletal: back normal Neurologic: alert, motor strength/tone normal, oriented x3, sensory intact, res ponsive, speech normal Psychiatric: judgement/insight normal, memory normal, mood/affect normal, no suicidal/homicidal ideation Skin: no rash Lymphatic: no adenopathy Procedures Critical Care Time Critical Care Time Total critical care time; approximately 30 minutes. Due to a high probability of clinically significant, life threatening deterioration, the patient required my highest level of preparedness to intervene emergently and I personally spent this critical care time directly and personally managing the patient. This critical care time included obtaining a history; examining the patient; pulse oximetry; ordering and reviewing of studies; arranging urgent treatment with development of a management plan; evaluation of patient's response to treatment; frequent reassessment; and, discussions with other providers. This critical care time was performed to assess and manage the high probability of imminent, life-threatening deterioration that could result in multiorgan failure it was exclusive of separate billable procedures and treating other patients and teaching time. Please see MDM section and the rest of the note for further information on patient assessment and treatment. Medical Decision Making PA Attestation All diagnoses and treatment plans were reviewed and discussed with my supervising physician Dr. Ramirez Diagnostic Impression: Primary Impression: Gastritis Additional Impressions: Epigastric abdominal pain Colitis ER Course 39-year-old female with history of gastritis here complaining of worsening epigastric abdominal pain. Patient was seen at [place] [facility] few days ago with similar complaint. Patient reports that primary doctor cannot obtain referral to counter maker at this time. Reports that she stopped eating spicy acidic food however continues to smoke tobacco. Patient is an occasional alcohol drinker. Explains the pain is worse when waking up in the morning. Reports that his epigastric and feels gassy. Denies any blood in stool and reports her constipation has been resolved. Denies any nausea vomiting have been resolved. Denies any bloody emesis. Denies any fever and chills, cough or congestion, shortness of breath, headache and dizziness. Reports that the medication that was prescribed for her last time did not help her. Denies drug use. Denies . Ddx considered but are not limited to: appendicitis, cholecystis, gastritis, gastroenteritis, UTI, pyelonephritis, SBO, diverticulitis, gastric ulcer, pancreatitis Vital signs: are WNL, pt. is afebrile H&PE are most consistent with: Epigastric abdominal pain most likely due to gastritis or ulcer, colitis ORDERS: abdominal CT, abdominal pain set, troponin, EKG, dicyclomine, Phenergan, pantoprazole ED INTERVENTIONS: NS bolus, Pepcid, Phenergan, Toradol DISCHARGE: At this time pt. is stable for d/c to home. Will provide printed patient care instructions, and any necessary prescriptions. Care plan and follow up instructions have been discussed with the patient prior to discharge. Advised patient to follow-up with counter maker for endoscopy, patient also needs to be tested for H. pylori as could be having H. pylori infection versus gastric ulcer versus peptic ulcer. Avoid tobacco smoke, avoid eating spicy and acidic food, if worsening symptoms return to the emergency EKG Diagnostic Results Rate: normal Rhythm: NSR ST Segments: no acute changes Other Impression No acute ST changes CT/MRI/US Diagnostic Results CT/MRI/US Diagnostic Results : Imaging Test Ordered: CT abdomen pelvis with contrast Impression FINDINGS: Lung bases: Unremarkable. No consolidation. No effusions. ABDOMEN: Liver: Unremarkable. No suspicious parenchymal lesions Gallbladder and bile ducts: Unremarkable. No calcified stones. No ductal dilation. Pancreas: Unremarkable. No mass. No ductal dilation. Spleen: Unremarkable. No splenomegaly. Adrenals: Unremarkable. No mass. Kidneys and ureters: Unremarkable. No solid mass. No hydronephrosis. Stomach and bowel: Mild segmental wall thickening in the mid descending colon, which may represent peristalsis versus mild colitis. Mild gastric wall thickening. Incidental note of a redundant loop within the descending colon. Colon otherwise appears unremarkable. Small bowel appears within normal limits without abnormal distention or wall thickening. PELVIS: Appendix: No findings to suggest acute appendicitis. Bladder: Unremarkable. No visible stones. Reproductive: The uterus and ovaries appear within normal limits. ABDOMEN and PELVIS: Intraperitoneal space: Unremarkable. No free air. No significant fluid collection. Bones/joints: No acute fracture. No dislocation. Soft tissues: Unremarkable. Vasculature: Unremarkable. No abdominal aortic aneurysm. Lymph nodes: Unremarkable. No enlarged lymph nodes. IMPRESSION: 1. Mild segmental wall thickening in the mid descending colon, which may represent peristalsis or underdistention versus mild colitis. No adjacent inflammatory stranding. 2. Mild gastric wall thickening may be related to underdistention versus gastritis. Last Vital Signs Date Time Temp Pulse Resp B/P (MAP) Pulse Ox O2 Delivery O2 Flow Rate FiO2 12/05/19 14:20 98.8 80 19 116/76 (89) 98 Room Air Disposition: HOME, SELF-CARE Condition: Stable Scripts Ondansetron (Zofran) 4 Mg Tablet 4 MG ORAL Q6H PRN for Nausea & Vomiting, #14 TAB Prov: Evan Brooks 12/05/19 Acetaminophen* (TYLENOL EXTRA STRENGTH*) 500 Mg Tablet 500 MG ORAL Q8H PRN for Prn Headache/Temp > 101, #30 TAB 0 Refills Prov: Evan Brooks 12/05/19 Dicyclomine Hcl* (DICYCLOMINE HCL*) 10 Mg Capsule 10 MG ORAL QID, #20 CAP Prov: Evan Brooks 12/05/19 Pantoprazole* (PROTONIX*) 40 Mg Tablet.dr 40 MG ORAL DAILY, #30 TAB Prov: Evan Brooks 12/05/19 Referrals: NOT CHOSEN IPA/,REFERRING (PCP) Patient Instructions: Abdominal Pain, Adult, Colitis, Gastritis, Adult, [id number] Additional Instructions: Advised patient to follow-up with counter maker for endoscopy, patient also needs to be tested for H. pylori as could be having H. pylori infection versus gastric ulcer versus peptic ulcer. Avoid tobacco smoke, avoid eating spicy and acidic food, if worsening symptoms return to the emergency Evan Brooks Dec 05, 2019 14:43
[2019-12-05] MEDS ORDERED: Omnipaque-300 100ml vial INJ PRN (14:45)
[2019-12-05] MEDS ORDERED: Ketorolac 30mg Inj IV ONE (14:45)
[2019-12-05 15:04] LABS: BASOPHILS % (AUTO) 1.3 % (0.0-2.0); EOSINOPHILS % (AUTO) 9.6 % (0.0-3.0); HEMATOCRIT 38.2 % (37.0-47.0); HEMOGLOBIN 12.4 G/DL (12.0-16.0); LYMPHOCYTES % (AUTO) 24.9 % (20.0-45.0); MEAN CORPUSCULAR VOLUME 93 FL (80-99); MONOCYTES % (AUTO) 6.6 % (1.0-10.0); NEUTROPHILS % (AUTO) 57.6 % (45.0-75.0); PLATELET COUNT 306 K/UL (150-450); RED CELL DISTRIBUTION WIDTH 10.8 % (11.6-14.8); WHITE BLOOD COUNT 5.9 K/UL (4.8-10.8)
[2019-12-05 15:06] LABS: APPEARANCE,URINE CLOUDY; BILIRUBIN, URINE NEGATIVE (NEGATIVE); COLOR,URINE PALE YELLOW; GLUCOSE, URINE (UA) NEGATIVE (NEGATIVE); KETONES,URINE NEGATIVE (NEGATIVE); LEUKOCYTE ESTERASE ,URINE 1+ (NEGATIVE); NITRITE,URINE NEGATIVE (NEGATIVE); PH,URINE 8 (4.5-8.0); PROTEIN,URINE NEGATIVE (NEGATIVE); UROBILINOGEN,URINE NORMAL MG/DL (0.0-1.0)
[2019-12-05 15:13] LABS: ANION GAP 6 mmol/L (5-15); BLOOD UREA NITROGEN 12 mg/dL (7-18); CALCIUM 9.2 MG/DL (8.5-10.1); CARBON DIOXIDE 28 MMOL/L (21-32); CHLORIDE 103 MMOL/L (98-107); CREATININE 0.6 MG/DL (0.55-1.30); POTASSIUM 3.9 MMOL/L (3.5-5.1); SODIUM 137 MMOL/L (136-145)
[2019-12-05 15:17] LABS: ALANINE AMINOTRANSFERASE 34 U/L (12-78); ALBUMIN 4.1 G/DL (3.4-5.0); ALBUMIN/GLOBULIN RATIO 1.1 (1.0-2.7); ALKALINE PHOSPHATASE 73 U/L (46-116); ASPARTATE AMINO TRANSFERASE 22 U/L (15-37); BILIRUBIN,TOTAL 0.6 MG/DL (0.2-1.0)
--- NOTE | 2019-12-05 16:47 | Diagnostic Imaging Report ---
EXAM: CT Abdomen and Pelvis With Intravenous Contrast CLINICAL HISTORY: PAIN TECHNIQUE: Axial computed tomography images of the abdomen and pelvis with intravenous contrast. Sagittal and coronal reformatted images were created and reviewed. CTDI is 4.2 mGy and DLP is 208.30 mGy-cm. One or more of the following dose reduction techniques were used: automated exposure control, adjustment of the mA and/or kV according to patient size, use of iterative reconstruction technique. COMPARISON: No relevant prior studies available. FINDINGS: Lung bases: Unremarkable. No consolidation. No effusions. ABDOMEN: Liver: Unremarkable. No suspicious parenchymal lesions Gallbladder and bile ducts: Unremarkable. No calcified stones. No ductal dilation. Pancreas: Unremarkable. No mass. No ductal dilation. Spleen: Unremarkable. No splenomegaly. Adrenals: Unremarkable. No mass. Kidneys and ureters: Unremarkable. No solid mass. No hydronephrosis. Stomach and bowel: Mild segmental wall thickening in the mid descending colon, which may represent peristalsis versus mild colitis. Mild gastric wall thickening. Incidental note of a redundant loop within the descending colon. Colon otherwise appears unremarkable. Small bowel appears within normal limits without abnormal distention or wall thickening. PELVIS: Appendix: No findings to suggest acute appendicitis. Bladder: Unremarkable. No visible stones. Reproductive: The uterus and ovaries appear within normal limits. ABDOMEN and PELVIS: Intraperitoneal space: Unremarkable. No free air. No significant fluid collection. Bones/joints: No acute fracture. No dislocation. Soft tissues: Unremarkable. Vasculature: Unremarkable. No abdominal aortic aneurysm. Lymph nodes: Unremarkable. No enlarged lymph nodes. IMPRESSION: 1. Mild segmental wall thickening in the mid descending colon, which may represent peristalsis or underdistention versus mild colitis. No adjacent inflammatory stranding. 2. Mild gastric wall thickening may be related to underdistention versus gastritis.
[2019-12-05] MEDS ORDERED: PROTONIX40 MG ORAL (16:57)
[2019-12-05] MEDS ORDERED: TYLENOL EXTRA500 MG ORAL (16:57)
[2019-12-05] MEDS ORDERED: DICYCLOMINE HCL10 MG ORAL (16:57)
[2019-12-05] MEDS ORDERED: ZOFRAN4 M1 ORAL (16:57)
[2019-12-05 17:10] VITALS: BP 116/76
--- NOTE | 2019-12-05 17:10 | NUR ---
ER DISCHARGE NOTE: Patient is cleared to be discharged per ERMD, pt is aox4, on room air, with stable vital signs. pt was given dc and prescription instructions, pt was able to verbalize understanding, pt id band and iv site removed without complications. pt is able to ambulate with steady gait. pt took all belongings.
== END 2019-12-05 17:10 | disposition home or self-care (01) ==
LOC: EMR 14:33
DX: K29.70 Gastritis, unspecified, without bleeding (principal); K52.9 Noninfective gastroenteritis and colitis, unspecified; F17.200 Nicotine dependence, unspecified, uncomplicated
CPT/HCPCS: 36415; 74177; 80053; 80307; 81003; 81025; 83690; 84484; 85025; 85610; 85730; 93005; 96374; 96375; G0480; J1885; Q9965; S0028; Z7502; 99291